=== PATIENT | female | born 1940 | race Caucasian/White ===

== ENCOUNTER 2017-07-11 12:03 | Emergency (ER) | payer OTHER ==
[~2017-07-11] VITALS: Ht 167.6 cm; Wt 118.1 kg
[~2017-07-11 12:03] MED LIST: ASPIRIN81 M1 PO; ASPIRIN81 M2 PO; BENADRYL ALLERG25 MG PO; CALCIUM + D 601 EACH PO; CALICUM 500+D1 EACH PO; CYMBALTA60 MG PO; GLIPIZIDE10 M1 PO; HAIR, SKIN & N1 EAC2 PO; HYDROCODON-ACE1 EAC9 PO; JANUVIA100 MG PO; KEFLEX500 MG PO; LANTUS 3 M100 UNITS1 SC; LEVOFLOXACIN750 MG PO; LEVOTHROID,S0.025 MG PO; LIPITOR80 MG PO; LOPRESSOR50 MG PO; Lopressor PO; MAGNESIUM400 M1 PO; METOPROLOL SUCC50 MG PO; METOPROLOL TAR100 MG PO; MICARDIS40 MG PO; OMEGA XL PO; OMEGA-3 1,0001 EAC1 PO; OMEGA-31000 M1 PO; OXYCODONE HCL15 MG PO; PLAVIX75 MG PO; ROCEPHIN 2 GM VI2 GM IV; SENNA PLUS TAB1 EACH PO; SENNA8.6 MG PO; SKIN PO; SYNTHROID25 MCG PO; TYLENOL ARTHRI650 M2 PO; VITAMIN D31000 UNIT PO; WELLBUTRIN XL300 MG PO; Wellbutrin PO; ZYRTEC10 MG PO; [UNRECOGNIZED DRUG - OTHER] PO; [UNRECOGNIZED DRUG - OTHER] PO
[2017-07-11 13:24] LABS: BASOPHIL COUNT 0.1 K/uL (0-0.1); EOSINOPHIL (%) 0.6 % (0-5); EOSINOPHIL COUNT 0.1 K/uL (0-0.3); HEMATOCRIT 45.2 % (36.0-46.0); IMMATURE GRANULOCYTE (%) 0.4 % (0.0-0.7); IMMATURE GRANULOCYTE COUNT 0.1 K/uL; INSTRUMENT ABS NEUTROPHIL CT 13.7 K/uL; MCHC 32.5 G/DL (30.0-36.0); MCV 89.2 FL (83-99); MEAN PLAT.VOLUME 11.6 uM^3 (9.5-12.4); MONOCYTE COUNT 1.2 K/uL (0-0.8); NEUTROPHIL COUNT 13.7 K/uL (1.8-6.4); PLATELET COUNT 246 K/uL (156-360); RBC DIS.WIDTH-CV 14.9 % (11.8-14.6); RBC DIS.WIDTH-SD 49.2 % (39-53); RED BLOOD COUNT 5.07 M/uL (3.80-5.20); WHITE BLOOD COUNT 17.1 K/uL (4.1-10.2)
[2017-07-11 13:31] LABS: ADD MIUA? YES; BILIRUBIN NEGATIVE; COLOR AMBER ((YELLOW)); GLUCOSE (STRIP) 50; KETONES 20; LEUKOCYTES NEGATIVE; NITRITE NEGATIVE; PROTEIN (STRIP) 100
[2017-07-11 13:34] LABS: CHLORIDE 106 mEq/L (99-109); POTASSIUM 4.9 mEq/L (3.7-5.4); SODIUM 137 mEq/L (136-147)
[2017-07-11 13:36] LABS: GLUCOSE 183 mg/dL (70-99)
[2017-07-11 13:37] LABS: ANION GAP 9 MEQ/L (2-14)
[2017-07-11 13:38] LABS: INTER. NORMALIZED RATIO 1.1; PROTHROMBIN TIME 11.7 SEC (10.2-12.9)
[2017-07-11 13:40] LABS: BLOOD LARGE
[2017-07-11 13:40] LABS: GFR ESTIMATE (CALCULATED) > 59 mL/min/
[2017-07-11 13:41] LABS: UREA NITROGEN (BUN) 32 mg/dL (9-23)
[2017-07-11 13:41] LABS: PTT 31.9 SEC (25-37)
[2017-07-11 13:44] LABS: RED BLOOD CELLS TNTC /HPF (0-5); UCUL ADDED? YES
[2017-07-11] MEDS ORDERED: KEFLEX500 MG PO (14:48)
[2017-07-11 14:58] VITALS: BP 118/79
== END 2017-07-11 15:00 | disposition home or self-care (01) ==
LOC: EME 12:03
PROVIDERS: Physician Assistant
DX: R31.9 Hematuria, unspecified (principal); R30.0 Dysuria; R39.15 Urgency of urination; I10 Essential (primary) hypertension; E03.9 Hypothyroidism, unspecified; E78.5 Hyperlipidemia, unspecified; E11.9 Type 2 diabetes mellitus without complications; Z79.4 Long term (current) use of insulin; Z79.02 Long term (current) use of antithrombotics/antiplatelets; Z79.82 Long term (current) use of aspirin; Z90.49 Acquired absence of other specified parts of digestive tract; Z95.5 Presence of coronary angioplasty implant and graft; I25.10 Atherosclerotic heart disease of native coronary artery without angina pectoris; K43.2 Incisional hernia without obstruction or gangrene; N20.0 Calculus of kidney; Z87.442 Personal history of urinary calculi; Z88.0 Allergy status to penicillin; F17.200 Nicotine dependence, unspecified, uncomplicated
CPT/HCPCS: 74176; 80048; 81003; 83605; 85025; 85610; 85730; 87077; 87086; 87186; 99281; 99285; J7030